=== PATIENT | female | born 2000 | race Caucasian/White ===

== ENCOUNTER 2023-04-07 18:32 | Emergency (ER) | payer OTHER, MEDICAID, SELFPAY ==
[2023-04-07] VITALS (7 sets, daily range): BP systolic 89–131; BP diastolic 55–79; PULSE 65–83; RESP 20; TEMP 36.4; O2SAT 92–97; BMI 38.9
--- NOTE | 2023-04-07 18:39 | DI.US.S_ITS ---
PROCEDURE: US PELVIC COMPLETE INDICATIONS: SEVERE PELVIC PAIN, IUD IN TECHNIQUE: Real-time scanning was performed of the pelvic organs, with image documentation. Additional endovaginal scanning was necessary due to incomplete visualization of the adnexal and endometrial structures by transabdominal scanning. COMPARISON: None. FINDINGS: Uterus: Uterus is anteverted and normal in size at 7.9 x 4.6 x 5.4 cm. The myometrium is homogeneous. The endometrium measures 10.1 mm combined thickness. There is an IUD in the uterine cavity. Nabothian cyst in cervix. Ovaries: Ovaries are not visualized. Other: No pathologic free abdominal or pelvic fluid. IMPRESSION: 1. A cause for pelvic pain is not identified. Ovaries are, however, not visualized. 2. Normal uterus. 3. IUD in expected position. 4. No free fluid in pelvis. We strive to produce accurate, complete, and clear reports of imaging services. To assist us in improving patient care, this report was composed using standard report templates and voice recognition software. Therefore, it may contain abnormal punctuation, insertions and/or omissions. Occasional wrong-word or sound-alike substitutions may occur. Though we review the report and make efforts to correct it, we do recommend that the report be read carefully in proper context to recognize any text inaccuracies. Dictated by: Bayron Berman M.D. on 04/07/2023 at 22:32 Approved by: Bayron Berman M.D. on 04/07/2023 at 22:34
[2023-04-07] MEDS: KETOROLAC 30 MG/ML VIAL 15 MG IV (18:46)
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
[2023-04-07 18:51] LABS: Add Manual Diff / Slide Review NO; Basophils Absolute Auto 0 /uL (0-100); Basophils Percent Auto 0.6 % (0-2); Eosinophils Absolute Auto 400 /uL (0-450); Eosinophils Percent Auto 6.8 % (2-4); Hematocrit 40.7 % (36-46); Hemoglobin 13.8 g/dL (12.0-16.0); Lymphocytes Absolute Auto 2200 /uL (1100-4500); Mean Corpuscular HGB Conc 33.8 % (30-36); Mean Corpuscular Hemoglobin 29.4 PG (26-34); Monocytes Absolute Auto 500 /uL (0-900); Monocytes Percent Auto 8.2 % (3-14); Neutrophils Absolute Auto 3100 /uL (1500-7000); Neutrophils Percent Auto 49.4 % (50-75); Platelet Count 242 X10^3/uL (150-400); Red Blood Cell Count 4.68 X10^6/uL (4.0-5.2); Red Cell Distribution Width 13.3 % (11.6-14.8); White Blood Cell Count 6.3 X10^3/uL (4.5-11.0)
[2023-04-07 19:03] LABS: Alanine Aminotransferase 34 IU/L (<35); Albumin 3.7 g/dL (3.5-5.0); Albumin Globulin Ratio 1.3 (1.0-2.8); Alkaline Phosphatase 91 U/L (38-126); Aspartate Aminotransferase 27 IU/L (14-36); BUN Creatinine Ratio 20.7 (6-22); Bilirubin Total 0.5 mg/dL (0.2-1.3); Blood Urea Nitrogen 12 mg/dL (7-17); Calcium 8.6 mg/dL (8.4-10.2); Carbon Dioxide 27 mmol/L (22-32); Chloride 104 mmol/L (98-107); Estimated Glomerular Filt Rate > 60 mL/min (>60); Globulin 2.9 g/dL (1.7-4.1); Glucose 88 mg/dL (70-100); HEMOLYSIS < 15 (0-50); Potassium 3.8 mmol/L (3.4-5.1); Sodium 135 mmol/L (137-145); Total Protein 6.6 g/dL (6.3-8.2)
[2023-04-07] MEDS: SODIUM CHLORIDE 0.9% 1,000 ML 1000 ML IV (19:11)
[2023-04-07] MEDS: DROPERIDOL 5 MG/2 ML VIAL 2.5 MG IV (19:11)
[2023-04-07 20:21] LABS: Appearance Urine UA CLEAR; Bilirubin Urine UA NEGATIVE (NEGATIVE); Color Urine UA YELLOW; Glucose Urine UA NEGATIVE (Negative); Ketones Urine UA NEGATIVE (NEGATIVE); Leukocyte Esterase Urine UA TRACE (NEGATIVE); Nitrite Urine UA NEGATIVE (Negative); Occult Blood Urine UA NEGATIVE (Negative); Protein Urine UA NEGATIVE (Negative); Specific Gravity Urine UA 1.015 (1.000-1.035)
[2023-04-07 20:28] LABS: Bacteria Urine Occasional (0-1); Culture Indicated Urine Cult Not Indicated; Mucus Urine 1+ (Negative); RBC Urine None Seen (0-5/HPF); Squamous Epithelial Cell Urine 5-10 /HPF (0-5/HPF); Urine Volume 10mL (spun); WBC Urine 0-1/HPF (0-5/HPF)
== END 2023-04-07 21:33 | disposition home or self-care (01) ==
PROVIDERS: Emergency Provider Emergency Medicine
DX: R10.2 Pelvic and perineal pain (principal); Z97.5 Presence of (intrauterine) contraceptive device; Z79.01 Long term (current) use of anticoagulants
CPT/HCPCS: 36415; 76830; 76856; 80053; 81001; 81025; 85025; 87210; 96361; 96374; 96375; 99284; J1790; J1885

== ENCOUNTER 2023-06-14 07:40 | Emergency (ER) | payer OTHER, MEDICAID, SELFPAY ==
[2023-06-14] VITALS (9 sets, daily range): BP systolic 96–117; BP diastolic 54–73; PULSE 65–76; RESP 14–25; TEMP 36.8; O2SAT 91–100; BMI 41.6
--- NOTE | 2023-06-14 07:59 | DI.RAD.S_ITS ---
PROCEDURE: XR CHEST 1V INDICATIONS: chest pain TECHNIQUE: One view of the chest was acquired. COMPARISON: [facility], CR, XR CHEST 2 VIEWS, 11/13/2018, 13:22. FINDINGS: Surgical changes and devices: None. Multiple wires overlying the chest. Lungs and pleura: Lungs are clear. Lower lung volumes. No pleural effusions or pneumothorax. Mediastinum: Mediastinal contours appear unchanged. Heart size is within normal limits. Bones and chest wall: No suspicious bony lesions. Overlying soft tissues appear unremarkable. IMPRESSION: No acute cardiopulmonary abnormality is seen. Dictated by: Juan Carlos Thompson M.D. on 06/14/2023 at 8:37 Approved by: Juan Carlos Thompson M.D. on 06/14/2023 at 8:38
--- NOTE | 2023-06-14 07:59 | DI.CT.S_ITS ---
PROCEDURE: CT HEAD/BRAIN WO CON INDICATIONS: Syncopal episode unwitnessed with head pain. TECHNIQUE: Noncontrast 4.5 mm thick angled axial sections acquired from the foramen magnum to the vertex, with coronal and sagittal reformats. For radiation dose reduction, the following was used: automated exposure control, adjustment of mA and/or kV according to patient size. COMPARISON: None. FINDINGS: Image quality: Diagnostic. CSF spaces: Basal cisterns are patent. No extra-axial fluid collections. Ventricles are normal in size and shape. Brain: No midline shift. No intracranial masses or hemorrhage. Gottlieb-white matter interface is normal. Skull and face: Calvarium and visualized facial bones are intact, without suspicious lesions. Sinuses: Visualized sinuses and mastoids are clear. IMPRESSION: No acute intracranial pathology. Dictated by: Efren Gil M.D. on 06/14/2023 at 8:25 Approved by: Efren Gil M.D. on 06/14/2023 at 8:25
--- NOTE | 2023-06-14 08:01 | DI.CT.S_ITS ---
PROCEDURE: CT CERVICAL SPINE WO CON INDICATIONS: Syncopal episode with head pain TECHNIQUE: Noncontrast 3 mm thick sections acquired from the skull base to the T4 level. Sagittal and coronal reformats were then constructed. For radiation dose reduction, the following was used: automated exposure control, adjustment of mA and/or kV according to patient size. COMPARISON: None. FINDINGS: Image quality: Excellent. Bones: No fractures or dislocations. Straightening and mild reversal the normal cervical lordosis, may be positional. Visualized superior ribs are intact. Soft tissues: Prevertebral soft tissues are normal in thickness. No paravertebral hematomas. No apical pneumothoraces. IMPRESSION: No displaced fracture or traumatic subluxation. Dictated by: Efren Gil M.D. on 06/14/2023 at 8:22 Approved by: Efren Gil M.D. on 06/14/2023 at 8:24
[2023-06-14 08:16] LABS: Add Manual Diff / Slide Review NO; Basophils Absolute Auto 0 /uL (0-100); Basophils Percent Auto 0.6 % (0-2); Eosinophils Absolute Auto 100 /uL (0-450); Eosinophils Percent Auto 1.9 % (2-4); Hematocrit 43.2 % (36-46); Hemoglobin 14.5 g/dL (12.0-16.0); Lymphocytes Absolute Auto 2100 /uL (1100-4500); Lymphocytes Percent Auto 32.6 % (25-40); Mean Corpuscular HGB Conc 33.7 % (30-36); Mean Corpuscular Hemoglobin 29.1 PG (26-34); Mean Corpuscular Volume 86.3 fL (80-100); Monocytes Absolute Auto 400 /uL (0-900); Monocytes Percent Auto 7.1 % (3-14); Neutrophils Absolute Auto 3700 /uL (1500-7000); Neutrophils Percent Auto 57.8 % (50-75); Platelet Count 260 X10^3/uL (150-400); Red Blood Cell Count 5.01 X10^6/uL (4.0-5.2); Red Cell Distribution Width 13.1 % (11.6-14.8); White Blood Cell Count 6.4 X10^3/uL (4.5-11.0)
--- NOTE | 2023-06-14 08:17 | ED_ITS ---
HPI - Syncope General Chief Complaint: Syncope Stated Complaint: syncope, weakness/ diziness Time Seen by Provider: 06/14/23 08:12 Source: patient and family Mode of arrival: Wheelchair Limitations: no limitations History of Present Illness HPI narrative: Patient here for syncopal episode. at home. Patient has long history of syncopal episodes. She has had 7 episodes in the past 1 year. She is being followed by [facility] services including cardiology with cardiac ablation for SVT however it did not resolve. She continues to have syncope episodes. No family history of arrhythmia. Denies any history of blood clots in legs or lungs. No recent illness otherwise. Patient states she does recall going to the bathroom, she urinated, and got up and felt very dizzy and felt very drained and tingling throughout her body, and she passed out. Denies any pain or injury from passing out. responded immediately. Brought her to the bed to lay her down. She did not pass out again. She states this is typical of her episodes in the past 1 year. This is not new. She has had MRI echocardiogram shows and workup for syncope. And she continues to. Related Data Home Medications Medication Instructions Recorded Confirmed alprazolam 0.25 mg tablet (Xanax) 0.25 mg PO BID PRN Anxiety 04/07/23 04/07/23 lamotrigine 25 mg tablet 25 mg PO DAILY 04/07/23 04/07/23 Allergies Allergy/AdvReac Type Severity Reaction Status Date / Time aspirin Allergy Intermediate Vomiting Verified 04/07/23 18:37 melatonin AdvReac Intermediate Swelling Verified 04/07/23 18:37 of Lip/Tongue/Throat Review of Systems Review of Systems Narrative: GENERAL: negative chills, fatigue, malaise, fever, sweats. HEENT: negative sinus pain, ear pain, sore throat RESPIRATORY: negative dyspnea, cough CARDIOVASCULAR: negative chest pain, palpitations GASTROINTESTINAL: negative nausea, vomiting, abdominal pain : negative dysuria, frequency, hematuria MUSCULOSKELETAL: negative muscle or bony pain SKIN: negative rash, skin lesions NEUROLOGIC: Positive syncope weakness, numbness ROS Unobtainable: All systems reviewed & are unremarkable except as noted in HPI and below Patient History Social History Smoking Status: Never smoker Smoking Status: Never smoker Alcohol type: hard liquor Substance Use Type: former substance user Exam Narrative Exam Narrative: GENERAL: in no distress, not toxic not dyspneic HEAD: Normocephalic. EYES: Pupils equal round ENT: Mucous membranes moist. NECK: Trachea midline. CARDIOVASCULAR: Regular rate and rhythm RESPIRATORY: Clear to auscultation. Breath sounds equal bilaterally. No wheezes, rales, or rhonchi. GASTROINTESTINAL: Abdomen soft, non-tender EXTREMITIES: No gross deformities. BACK: No flank tenderness. NEURO: AOx4. 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 pronator drift flexes and extends bilateral knees and ankles and hips without difficulty., fast exam is negative SKIN: Warm and dry PSYCH: Not anxious, is cooperative Initial Vital Signs Initial Vital Signs: Vital Signs Pulse Rate 76 06/14/23 07:50 Pulse Oximetry 98 06/14/23 07:50 Course Orders Ordered: Discontinued Medications Sodium Chloride (Normal Saline 0.9%) 1,000 mls @ 1,000 mls/hr IV BOLUS ONE Stop: 06/14/23 10:12 Last Admin: 06/14/23 09:33 Dose: 1,000 mls/hr Documented By: FRANK Vital Signs Vital signs: Vital Signs - 8 hr 06/14/23 07:50 06/14/23 07:51 06/14/23 07:51 Temperature Pulse Rate 76 76 Respiratory Rate 19 Blood Pressure 113/70 Pulse Oximetry 98 97 Oxygen Delivery Method 06/14/23 07:54 06/14/23 08:00 06/14/23 08:00 Temperature 98.3 F Pulse Rate 76 76 Respiratory Rate 18 17 Blood Pressure 113/70 117/73 Pulse Oximetry 97 96 Oxygen Delivery Method Room Air MDM - Syncope Lab Data 06/14/23 08:08 06/14/23 08:08 Labs: Lab Results 06/14/23 Range/Units 08:08 WBC 6.4 (4.5-11.0) X10^3/uL RBC 5.01 (4.0-5.2) X10^6/uL Hgb 14.5 (12.0-16.0) g/dL Hct 43.2 (36-46) % MCV 86.3 (80-100) fL MCH 29.1 (26-34) PG MCHC 33.7 (30-36) % RDW 13.1 (11.6-14.8) % Plt Count 260 (150-400) X10^3/uL Neut % (Auto) 57.8 (50-75) % Lymph % (Auto) 32.6 (25-40) % [place] % (Auto) 7.1 (3-14) % Eos % (Auto) 1.9 L (2-4) % Baso % (Auto) 0.6 (0-2) % Neut # (Auto) 3700 (6050-9720) /uL Lymph # (Auto) 2100 (4854-0154) /uL [place] # (Auto) 400 (0-900) /uL Eos # (Auto) 100 (0-450) /uL Baso # (Auto) 0 (0-100) /uL PT 11.3 (9.4-12.5) SECONDS INR 1.0 (0.9-1.3) APTT 35 (25.1-36.5) SECONDS Sodium 138 (137-145) mmol/L Potassium 4.2 (3.4-5.1) mmol/L Chloride 104 (98-107) mmol/L Carbon Dioxide 30 (22-32) mmol/L BUN 14 (7-17) mg/dL Creatinine 0.64 (0.52-1.04) mg/dL Estimated GFR > 60 (>60) mL/min BUN/Creatinine Ratio 21.9 (6-22) Glucose 95 (70-100) mg/dL Calcium 9.0 (8.4-10.2) mg/dL Magnesium 2.0 (1.6-2.3) mg/dL Total Bilirubin 0.7 (0.2-1.3) mg/dL AST 28 (14-36) IU/L ALT 37 H (<35) IU/L Alkaline Phosphatase 95 (38-126) U/L Total Creatine Kinase 75 (30-135) U/L Troponin I < 0.012 (0.01-0.034) ng/mL Total Protein 6.7 (6.3-8.2) g/dL Albumin 4.0 (3.5-5.0) g/dL Globulin 2.7 (1.7-4.1) g/dL Albumin/Globulin Ratio 1.5 (1.0-2.8) Lipase 67 (23-300) U/L Serum , Qual Negative (Negative) Imaging Data CT scan - head: Radiologist's Impression: [address] [address] [address] Scan Report Signed Patient: Barbara Lawler MR#: [id number] : 2000 Acct:[id number] Age/Sex: 23 / F Date of Service: 06/14/23 Loc: ED Accession Number: [id number] Procedure: CT head/brain wo con Ordering Provider: Ney Ramirez MD PROCEDURE: CT HEAD/BRAIN WO CON INDICATIONS: Syncopal episode unwitnessed with head pain. TECHNIQUE: Noncontrast 4.5 mm thick angled axial sections acquired from the foramen magnum to the vertex, with coronal and sagittal reformats. For radiation dose reduction, the following was used: automated exposure control, adjustment of mA and/or kV according to patient size. COMPARISON: None. FINDINGS: Image quality: Diagnostic. CSF spaces: Basal cisterns are patent. No extra-axial fluid collections. Ventricles are normal in size and shape. Brain: No midline shift. No intracranial masses or hemorrhage. Gottlieb-white matter interface is normal. Skull and face: Calvarium and visualized facial bones are intact, without suspicious lesions. Sinuses: Visualized sinuses and mastoids are clear. IMPRESSION: No acute intracranial pathology. Dictated by: Efren Gil M.D. on 06/14/2023 at 8:25 Approved by: Efren Gil M.D. on 06/14/2023 at 8:25 CT - cervical spine: Radiologist's Impression: [address] [address] [address] Scan Report Signed Patient: Barbara Lawler MR#: [id number] : 2000 Acct:[id number] Age/Sex: 23 / F Date of Service: 06/14/23 Loc: ED Accession Number: [id number] Procedure: CT cervical spine wo con Ordering Provider: Ney Ramirez MD PROCEDURE: CT CERVICAL SPINE WO CON INDICATIONS: Syncopal episode with head pain TECHNIQUE: Noncontrast 3 mm thick sections acquired from the skull base to the T4 level. Sagittal and coronal reformats were then constructed. For radiation dose reduction, the following was used: automated exposure control, adjustment of mA and/or kV according to patient size. COMPARISON: None. FINDINGS: Image quality: Excellent. Bones: No fractures or dislocations. Straightening and mild reversal the normal cervical lordosis, may be positional. Visualized superior ribs are intact. Soft tissues: Prevertebral soft tissues are normal in thickness. No paravertebral hematomas. No apical pneumothoraces. IMPRESSION: No displaced fracture or traumatic subluxation. Dictated by: Efren Gil M.D. on 06/14/2023 at 8:22 Approved by: Efren Gil M.D. on 06/14/2023 at 8:24 Chest x-ray: Radiologist's Impression: [address] [address] XRay Report Signed Patient: Barbara Lawler MR#: [id number] : 2000 Acct:[id number] Age/Sex: 23 / F Date of Service: 06/14/23 Loc: ED Accession Number: [id number] Procedure: XR chest 1V Ordering Provider: Ney Ramirez MD PROCEDURE: XR CHEST 1V INDICATIONS: chest pain TECHNIQUE: One view of the chest was acquired. COMPARISON: [facility], , XR CHEST 2 VIEWS, 11/13/2018, 13:22. FINDINGS: Surgical changes and devices: None. Multiple wires overlying the chest. Lungs and pleura: Lungs are clear. Lower lung volumes. No pleural effusions or pneumothorax. Mediastinum: Mediastinal contours appear unchanged. Heart size is within normal limits. Bones and chest wall: No suspicious bony lesions. Overlying soft tissues appear unremarkable. IMPRESSION: No acute cardiopulmonary abnormality is seen. Dictated by: Juan Carlos Thompson M.D. on 06/14/2023 at 8:37 Approved by: Juan Carlos Thompson M.D. on 06/14/2023 at 8:[address] [facility] Narrative Medical decision making narrative: Patient here for syncopal episode. at home. Patient has long history of syncopal episodes. She has had 7 episodes in the past 1 year. She is being followed by [facility] services including cardiology with cardiac ablation for SVT however it did not resolve. She continues to have syncope episodes. No family history of arrhythmia. Denies any history of blood clots in legs or lungs. No recent illness otherwise. Patient states she does recall going to the bathroom, she urinated, and got up and felt very dizzy and felt very drained and tingling throughout her body, and she passed out. Denies any pain or injury from passing out. responded immediately. Brought her to the bed to lay her down. She did not pass out again. She states this is typical of her episodes in the past 1 year. This is not new. She has had MRI echocardiogram shows and workup for syncope. And she continues to. After history and exam CBC CMP EKG CT head cervical spine chest x-ray troponin magnesium, no D-dimer indicated this time for syncope, patient has same syncopal episode as she has had in the last year/6 episodes. Vital signs are reassuring no hypoxia or tachypnea or tachycardia MDM Medical records reviewed: No recent visit for this complaint Differential considered: Includes but not limited to vasovagal syncope SVT arrhythmia pots syndrome, pulmonary embolism dehydration anemia Lab Test results independently reviewed as above. Pertinent findings: WBC 6.4 hemoglobin 14.5 INR 1.0 sodium 138 potassium 4.2 BUN 14 creatinine 0.64 GFR greater than 60 troponin less than 0.012, negative Independently reviewed EKG sinus rhythm rate [address] elevation or depression. There is incomplete right bundle-branch block Imaging studies independently reviewed: CT head CT cervical spine chest x-ray no acute finding Consultations: None indicated at this time Treatments: Normal saline Re-evaluations: 9:48 a.m. Patient remains awake alert oriented x4. No complaints. No pain. Reviewed results with patient and . They agree with workup here and discharge home. This is not new for her. Feeling tired and fatigued after these episodes is not new. Work note provided for both of them. Return precautions reviewed. No new medications indicated this time. They desire discharge home Discussion: Appropriate for discharge home. This is not patient's 1st episode. This is patient's 7th episode. She has been worked up by Cardiology EKG noted however again she has been worked up by Cardiology. Likely not pulmonary embolism given this patient has had 7 episodes in the past 1 year. No dyspnea no tachycardia no hypoxia. Return precautions reviewed. They desire discharge home Diagnosis: Recurrent syncope Discharge Plan Departure Patient Disposition: Home Clinical Impression: Syncope and collapse Instructions: DI for Syncope in Adults (Fainting) Activity Restrictions/Additional Instructions: No driving operating machinery today. Please do get plenty of rest. See your [facility] providers as scheduled. Continue home medications. Return if worse if any questions or concerns. Today's laboratory studies and workup and imaging studies and EKG are reassuring. Prescriptions: No Action alprazolam [Xanax] 0.25 mg Tablet 0.25 mg PO BID PRN (Reason: Anxiety) lamotrigine 25 mg Tablet 25 mg PO DAILY Stand Alone Forms: Patient Portal/API, Work Release Note
[2023-06-14 08:24] LABS: Prothrombin Time 11.3 SECONDS (9.4-12.5)
[2023-06-14 08:27] LABS: PTT Partial Thromboplastin Tim 35 SECONDS (25.1-36.5)
[2023-06-14 08:28] LABS: Alanine Aminotransferase 37 IU/L (<35); Albumin Globulin Ratio 1.5 (1.0-2.8); Alkaline Phosphatase 95 U/L (38-126); Aspartate Aminotransferase 28 IU/L (14-36); BUN Creatinine Ratio 21.9 (6-22); Bilirubin Total 0.7 mg/dL (0.2-1.3); Blood Urea Nitrogen 14 mg/dL (7-17); Carbon Dioxide 30 mmol/L (22-32); Chloride 104 mmol/L (98-107); Creatine Kinase 75 U/L (30-135); Estimated Glomerular Filt Rate > 60 mL/min (>60); Globulin 2.7 g/dL (1.7-4.1); Glucose 95 mg/dL (70-100); HEMOLYSIS < 15 (0-50); Lipase 67 U/L (23-300); Potassium 4.2 mmol/L (3.4-5.1); Sodium 138 mmol/L (137-145); Total Protein 6.7 g/dL (6.3-8.2)
[2023-06-14 08:39] LABS: Troponin I < 0.012 ng/mL (0.01-0.034)
[2023-06-14 09:23] LABS: Pregnancy Test Serum,Qual Negative (Negative)
[2023-06-14] MEDS: SODIUM CHLORIDE 0.9% 1,000 ML 1000 ML IV (09:33)
== END 2023-06-14 10:15 | disposition home or self-care (01) ==
PROVIDERS: Emergency Provider Emergency Medicine
DX: R55 Syncope and collapse (principal); R51.9 Headache, unspecified; R07.9 Chest pain, unspecified
CPT/HCPCS: 70450; 71045; 72125; 80053; 82550; 83690; 83735; 84484; 84703; 85025; 85610; 85730; 93005; 93010; 99284

== ENCOUNTER 2023-10-20 16:25 | Emergency (ER) | payer OTHER, MEDICAID, SELFPAY ==
[2023-10-20] VITALS (8 sets, daily range): BP systolic 104–111; BP diastolic 58–70; PULSE 70–81; RESP 16; TEMP 36.4; O2SAT 94–99; BMI 46.0
--- NOTE | 2023-10-20 17:00 | ED_ITS ---
HPI - General Adult <DO Silvano Jang Last Filed: 10/21/23 07:04> General Chief complaint: Abdominal Pain Stated complaint: N/V, abd pain Time Seen by Provider: 10/20/23 16:45 Source: patient Mode of arrival: Ambulatory Limitations: no limitations History of Present Illness HPI narrative: Patient is a 23-year-old female he was here for evaluation of less than 12 hours of right upper quadrant abdominal pain. She stated that she started to have some nausea last evening but after she woke up this morning and had breakfast which consisted of a bagel she developed right upper quadrant abdominal pain that has been persistent since then. Has tried to sleep today without success. Has had persistent pain. Persistent nausea. Has been constipated for the past couple days and did not have a bowel movement today. No urinary symptoms. No vaginal bleeding. She has had her appendix removed but no other abdominal surgeries. No chest pain or shortness of breath or fever. Related Data Home Medications Medication Instructions Recorded Confirmed alprazolam 0.25 mg tablet (Xanax) 0.25 mg PO BID PRN Anxiety 04/07/23 04/07/23 lamotrigine 25 mg tablet 25 mg PO DAILY 04/07/23 04/07/23 Previous Rx's Medication Instructions Recorded omeprazole 20 mg capsule,delayed 20 mg PO DAILY upper abdominal 10/20/23 release pain 30 days #30 caps Allergies Allergy/AdvReac Type Severity Reaction Status Date / Time aspirin Allergy Intermediate Vomiting Verified 04/07/23 18:37 melatonin AdvReac Intermediate Swelling Verified 04/07/23 18:37 of Lip/Tongue/Throat Review of Systems <DO Silvano Jang Last Filed: 10/21/23 07:04> Review of Systems Narrative: See HPI Patient History <DO Silvano Jang Last Filed: 10/21/23 07:04> Social History Smoking Status: Never smoker Smoking Status: Never smoker Alcohol type: hard liquor Substance Use Type: former substance user Exam <DO Silvano Jang Last Filed: 10/21/23 07:04> Initial Vital Signs Initial Vital Signs: Vital Signs Temperature 97.6 F 10/20/23 16:40 Pulse Rate 76 10/20/23 16:40 Respiratory Rate 16 10/20/23 16:40 Blood Pressure 108/70 10/20/23 16:40 Pulse Oximetry 97 10/20/23 16:40 Oxygen Delivery Method Room Air 10/20/23 16:40 Const General: cooperative and No ill appearing HENMT Head: normal to inspection and normocephalic Resp Effort & Inspection: normal respiratory effort Auscultation: clear to auscultation bilaterally Cardio Rate: regular rate Rhythm: regular rhythm GI Inspection: normal to inspection and non-distended Palpation: soft, No firm and tender (Right upper quadrant, positive Billings's sign) Back/Spine/Pelvis Back: No CVA tenderness Skin General: no rashes or lesions noted Neuro General: patient alert, patient awake, patient oriented x3 and moves all extremities Extrem General: normal to inspection and capillary refill normal <Isra Novak MD - Last Filed: 10/21/23 00:15> Initial Vital Signs Initial Vital Signs: Vital Signs Temperature 97.6 F 10/20/23 16:40 Pulse Rate 76 10/20/23 16:40 Respiratory Rate 16 10/20/23 16:40 Blood Pressure 108/70 10/20/23 16:40 Pulse Oximetry 97 10/20/23 16:40 Oxygen Delivery Method Room Air 10/20/23 16:40 Course <Juels Link DO - Last Filed: 10/21/23 07:04> Orders Ordered: Discontinued Medications Famotidine (Famotidine 20 Mg/2 Ml Vial) 20 mg IV NOW UVALDO Famotidine (Famotidine 20 Mg/2 Ml Vial) 20 mg IV NOW ONE Stop: 10/20/23 20:01 Last Admin: 10/20/23 19:57 Dose: 20 mg Documented By: LEO Hydromorphone HCl (Hydromorphone 0.5 Mg Inj) 0.5 mg IV NOW ONE Stop: 10/20/23 19:37 Last Admin: 10/20/23 19:56 Dose: 0.5 mg Documented By: LEO Sodium Chloride (Normal Saline 0.9%) 1,000 mls @ 1,000 mls/hr IV BOLUS ONE Stop: 10/20/23 17:59 Last Infusion: 10/20/23 19:57 Dose: Infused Documented By: Admin: 10/20/23 17:21 Dose: 1,000 mls/hr Documented By: DAMASO Ketorolac Tromethamine (Ketorolac 30 Mg/Ml Vial) 15 mg IV NOW ONE Stop: 10/20/23 17:02 Last Admin: 10/20/23 17:23 Dose: 15 mg Documented By: DAMASO Ondansetron HCl (Ondansetron 4 Mg/2 Ml Inj) 4 mg IV NOW ONE Stop: 10/20/23 17:01 Last Admin: 10/20/23 17:23 Dose: 4 mg Documented By: DAMASO Ondansetron HCl (Ondansetron 4 Mg/2 Ml Inj) 4 mg IV NOW ONE Stop: 10/20/23 20:08 Last Admin: 10/20/23 20:08 Dose: 4 mg Documented By: LEO Tramadol HCl (Tramadol 50 Mg Prepack) 1 bottle MISC DIRECTED ONE Stop: 10/20/23 19:42 Last Admin: 10/20/23 19:56 Dose: 1 bottle Documented By: LEO Vital Signs Vital signs: Vital Signs - 8 hr 10/20/23 16:40 10/20/23 18:17 10/20/23 18:17 Temperature 97.6 F Pulse Rate 76 75 Respiratory Rate 16 Blood Pressure 108/70 111/58 L Pulse Oximetry 97 97 Oxygen Delivery Method Room Air Room Air 10/20/23 18:32 10/20/23 19:00 10/20/23 19:30 Temperature Pulse Rate 70 75 71 Respiratory Rate Blood Pressure Pulse Oximetry 97 99 99 Oxygen Delivery Method 10/20/23 20:00 10/20/23 20:02 10/20/23 20:02 Temperature Pulse Rate 79 81 Respiratory Rate Blood Pressure 107/70 Pulse Oximetry 99 97 Oxygen Delivery Method 10/20/23 20:24 Temperature Pulse Rate 71 Respiratory Rate 16 Blood Pressure 104/66 Pulse Oximetry 94 Oxygen Delivery Method Room Air <Isra Novak MD - Last Filed: 10/21/23 00:15> Orders Ordered: Discontinued Medications Famotidine (Famotidine 20 Mg/2 Ml Vial) 20 mg IV NOW UVALDO Famotidine (Famotidine 20 Mg/2 Ml Vial) 20 mg IV NOW ONE Stop: 10/20/23 20:01 Last Admin: 10/20/23 19:57 Dose: 20 mg Documented By: LEO Hydromorphone HCl (Hydromorphone 0.5 Mg Inj) 0.5 mg IV NOW ONE Stop: 10/20/23 19:37 Last Admin: 10/20/23 19:56 Dose: 0.5 mg Documented By: LEO Sodium Chloride (Normal Saline 0.9%) 1,000 mls @ 1,000 mls/hr IV BOLUS ONE Stop: 10/20/23 17:59 Last Infusion: 10/20/23 19:57 Dose: Infused Documented By: Admin: 10/20/23 17:21 Dose: 1,000 mls/hr Documented By: DAMASO Ketorolac Tromethamine (Ketorolac 30 Mg/Ml Vial) 15 mg IV NOW ONE Stop: 10/20/23 17:02 Last Admin: 10/20/23 17:23 Dose: 15 mg Documented By: DAMASO Ondansetron HCl (Ondansetron 4 Mg/2 Ml Inj) 4 mg IV NOW ONE Stop: 10/20/23 17:01 Last Admin: 10/20/23 17:23 Dose: 4 mg Documented By: DAMASO Ondansetron HCl (Ondansetron 4 Mg/2 Ml Inj) 4 mg IV NOW ONE Stop: 10/20/23 20:08 Last Admin: 10/20/23 20:08 Dose: 4 mg Documented By: LEO Tramadol HCl (Tramadol 50 Mg Prepack) 1 bottle MISC DIRECTED ONE Stop: 10/20/23 19:42 Last Admin: 10/20/23 19:56 Dose: 1 bottle Documented By: LEO Vital Signs Vital signs: Vital Signs - 8 hr 10/20/23 16:40 10/20/23 18:17 10/20/23 18:17 Temperature 97.6 F Pulse Rate 76 75 Respiratory Rate 16 Blood Pressure 108/70 111/58 L Pulse Oximetry 97 97 Oxygen Delivery Method Room Air Room Air 10/20/23 18:32 10/20/23 19:00 10/20/23 19:30 Temperature Pulse Rate 70 75 71 Respiratory Rate Blood Pressure Pulse Oximetry 97 99 99 Oxygen Delivery Method 10/20/23 20:00 10/20/23 20:02 10/20/23 20:02 Temperature Pulse Rate 79 81 Respiratory Rate Blood Pressure 107/70 Pulse Oximetry 99 97 Oxygen Delivery Method 10/20/23 20:24 Temperature Pulse Rate 71 Respiratory Rate 16 Blood Pressure 104/66 Pulse Oximetry 94 Oxygen Delivery Method Room Air Medical Decision Making <Jules Link, - Last Filed: 10/21/23 07:04> Lab Data Lab results reviewed: Yes I reviewed the patient's lab results. 10/20/23 16:50 10/20/23 16:50 Labs: Lab Results 10/20/23 Range/Units 16:50 WBC 6.7 (4.5-11.0) X10^3/uL RBC 4.77 (4.0-5.2) X10^6/uL Hgb 14.0 (12.0-16.0) g/dL Hct 41.5 (36-46) % MCV 86.9 (80-100) fL MCH 29.3 (26-34) PG MCHC 33.7 (30-36) % RDW 13.2 (11.6-14.8) % Plt Count 230 (150-400) X10^3/uL Neut % (Auto) 46.8 L (50-75) % Lymph % (Auto) 41.0 H (25-40) % [place] % (Auto) 8.0 (3-14) % Eos % (Auto) 3.6 (2-4) % Baso % (Auto) 0.6 (0-2) % Neut # (Auto) 3100 (2879-4946) /uL Lymph # (Auto) 2700 (6590-2671) /uL [place] # (Auto) 500 (0-900) /uL Eos # (Auto) 200 (0-450) /uL Baso # (Auto) 0 (0-100) /uL Sodium 137 (137-145) mmol/L Potassium 3.8 (3.4-5.1) mmol/L Chloride 106 (98-107) mmol/L Carbon Dioxide 27 (22-32) mmol/L BUN 13 (7-17) mg/dL Creatinine 0.61 (0.52-1.04) mg/dL Estimated GFR > 60 (>60) mL/min BUN/Creatinine Ratio 21.3 (6-22) Glucose 100 (70-100) mg/dL Calcium 8.8 (8.4-10.2) mg/dL Total Bilirubin 0.5 (0.2-1.3) mg/dL AST 27 (14-36) IU/L ALT 35 H (<35) IU/L Alkaline Phosphatase 102 (38-126) U/L Total Protein 6.0 L (6.3-8.2) g/dL Albumin 3.7 (3.5-5.0) g/dL Globulin 2.3 (1.7-4.1) g/dL Albumin/Globulin Ratio 1.6 (1.0-2.8) Lipase 97 (23-300) U/L Serum , Qual Negative (Negative) Urine Dip Bedside Urine Glucose Negative Bedside Urine Bilirubin - Negative Bedside Urine Ketone - Negative Urine Specific [place] 1.015 Bedside Urine Occult Blood - Negative Bedside Urine pH 7.5 Bedside Urine Protein - Negative Bedside Urine Urobilinogen +/- 1mg Bedside Urine Nitrite - Negative Bedside Urine Leukocytes - Negative Esterase Point of care testing: Urine Dip Bedside Urine Glucose Negative Bedside Urine Bilirubin - Negative Bedside Urine Ketone - Negative Urine Specific [place] 1.015 Bedside Urine Occult Blood - Negative Bedside Urine pH 7.5 Bedside Urine Protein - Negative Bedside Urine Urobilinogen +/- 1mg Bedside Urine Nitrite - Negative Bedside Urine Leukocytes - Negative Esterase Imaging Data US - abdomen: Radiologist's Impression: PROCEDURE: US ABDOMEN LIMITED INDICATIONS: RUQ US eval for GB pathology TECHNIQUE: Real-time scanning was performed of the abdominal and retroperitoneal organs, with image documentation. COMPARISON: None. FINDINGS: Liver: Liver is normal in size and diffusely increased in echogenicity. Gallbladder: No gallstones. No wall thickening. No pericholecystic edema. Negative sonographic Billings's sign. gallbladder is mildly contracted. Biliary ducts: Intrahepatic bile ducts are non-dilated. Extrahepatic bile duct caliber measures 4.4 mm. Normal is 6-7 mm or less in diameter, or 10 mm or less post-cholecystectomy. Pancreas: Pancreas is not well visualized due to overlying bowel gas. Miscellaneous: No free abdominal fluid. IMPRESSION: 1. Mildly contracted but otherwise normal gallbladder. 2. Diffusely increased hepatic echogenicity is nonspecific, but most commonly encountered in the setting of hepatic steatosis. However, other causes of hepatocellular disease are not excluded. Recommend clinical correlation. MDM Narrative Medical decision making narrative: Patient with significant right upper quadrant abdominal pain. Positive Billings's sign. Unremarkable LFTs and lipase. Right upper quadrant ultrasound shows no signs of acute gallbladder pathology. Will obtain CT scan of the abdomen pelvis for further evaluation. She has had her appendix removed. Care turned over to Dr. Novak to follow-up and disposition. <Isra Novak MD - Last Filed: 10/21/23 00:15> Lab Data Labs: Lab Results 10/20/23 Range/Units 16:50 WBC 6.7 (4.5-11.0) X10^3/uL RBC 4.77 (4.0-5.2) X10^6/uL Hgb 14.0 (12.0-16.0) g/dL Hct 41.5 (36-46) % MCV 86.9 (80-100) fL MCH 29.3 (26-34) PG MCHC 33.7 (30-36) % RDW 13.2 (11.6-14.8) % Plt Count 230 (150-400) X10^3/uL Neut % (Auto) 46.8 L (50-75) % Lymph % (Auto) 41.0 H (25-40) % [place] % (Auto) 8.0 (3-14) % Eos % (Auto) 3.6 (2-4) % Baso % (Auto) 0.6 (0-2) % Neut # (Auto) 3100 (2198-1814) /uL Lymph # (Auto) 2700 (9622-7961) /uL [place] # (Auto) 500 (0-900) /uL Eos # (Auto) 200 (0-450) /uL Baso # (Auto) 0 (0-100) /uL Sodium 137 (137-145) mmol/L Potassium 3.8 (3.4-5.1) mmol/L Chloride 106 (98-107) mmol/L Carbon Dioxide 27 (22-32) mmol/L BUN 13 (7-17) mg/dL Creatinine 0.61 (0.52-1.04) mg/dL Estimated GFR > 60 (>60) mL/min BUN/Creatinine Ratio 21.3 (6-22) Glucose 100 (70-100) mg/dL Calcium 8.8 (8.4-10.2) mg/dL Total Bilirubin 0.5 (0.2-1.3) mg/dL AST 27 (14-36) IU/L ALT 35 H (<35) IU/L Alkaline Phosphatase 102 (38-126) U/L Total Protein 6.0 L (6.3-8.2) g/dL Albumin 3.7 (3.5-5.0) g/dL Globulin 2.3 (1.7-4.1) g/dL Albumin/Globulin Ratio 1.6 (1.0-2.8) Lipase 97 (23-300) U/L Serum , Qual Negative (Negative) Urine Dip Bedside Urine Glucose Negative Bedside Urine Bilirubin - Negative Bedside Urine Ketone - Negative Urine Specific [place] 1.015 Bedside Urine Occult Blood - Negative Bedside Urine pH 7.5 Bedside Urine Protein - Negative Bedside Urine Urobilinogen +/- 1mg Bedside Urine Nitrite - Negative Bedside Urine Leukocytes - Negative Esterase Point of care testing: Urine Dip Bedside Urine Glucose Negative Bedside Urine Bilirubin - Negative Bedside Urine Ketone - Negative Urine Specific [place] 1.015 Bedside Urine Occult Blood - Negative Bedside Urine pH 7.5 Bedside Urine Protein - Negative Bedside Urine Urobilinogen +/- 1mg Bedside Urine Nitrite - Negative Bedside Urine Leukocytes - Negative Esterase Imaging Data CT scan - abdomen/pelvis: Radiologist's Impression: [address] [address] [address] Scan Report Signed Patient: Barbara Poole MR#: [id number] : 2000 Acct:[id number] Age/Sex: 23 / F Date of Service: 10/20/23 Loc: ED Accession Number: [id number] Procedure: CT abdomen pelvis w con Ordering Provider: Jules Link D.O. PROCEDURE: CT ABDOMEN PELVIS W CON INDICATIONS: R sided abd pain has had appendectomy TECHNIQUE: After the administration of intravenous contrast, axial sections acquired from the lung bases to the pubic symphysis. Coronal and sagittal reformats were performed. For radiation dose reduction, the following was used: automated exposure control, adjustment of mA and/or kV according to patient size. COMPARISON: [facility], , US ABDOMEN LIMITED, 10/20/2023, 17:11. FINDINGS: Image quality: Diagnostic. Lower Chest: No significant findings. ABDOMEN: Liver: No solid mass. Gallbladder: Mildly contracted. No radiopaque gallstones or wall thickening. Biliary ducts: No biliary dilation. Pancreas: No ductal dilation. Spleen: Spleen is mildly enlarged measuring 12.9 cm in anterior-posterior dimension. Adrenal Glands: No adrenal nodules. Kidneys and Ureters: No hydronephrosis. No solid mass. No complex renal cystic lesion which requires follow up. Nonobstructing 2 mm calculus at the inferior pole of the left kidney. Stomach and Bowel: Normal colonic caliber, without significant wall thickening. Status post appendectomy. Small bowel loops and stomach are unremarkable. Peritoneum: No abnormal intraperitoneal fluid. No free air. Ventral Wall: Small fat containing periumbilical hernia. Abdominal Nodes: No retroperitoneal or mesenteric adenopathy by size criteria. Vessels: Aorta and inferior vena cava are normal in size. PELVIS: Pelvic Organs: Ovaries are symmetric in size. Uterus is unremarkable. Bladder: Bladder is decompressed and not well evaluated. Pelvic Nodes: No enlarged lymph nodes. Miscellaneous: No inguinal hernias are seen. Bones: No aggressive osseous abnormality. IMPRESSION: 1. No acute abnormality identified in the abdomen or pelvis. No definite source for right-sided abdominal pain. 2. Nonobstructing 2 mm left renal calculus. 3. Mild splenomegaly. Approved by: Alfonso Simons M.D. on 10/20/2023 at 19:07 MDM Narrative Medical decision making narrative: Patient with significant right upper quadrant abdominal pain. Positive Billings's sign. Unremarkable LFTs and lipase. Right upper quadrant ultrasound shows no signs of acute gallbladder pathology. Will obtain CT scan of the abdomen pelvis for further evaluation. She has had her appendix removed. Care turned over to Dr. Novak to follow-up and disposition. 10/20/2023, 6:00 p.m. Sign-out from Dr. Link. 23-year-old female with right upper quadrant abdominal pain, afebrile, HCG negative, normal white blood cell count, normal LFTs, normal lactate, right upper quadrant ultrasound negative. CT abdomen and pelvis has been ordered, still to be performed. Assumed care. CT abdomen pelvis showed nonobstructing 2 mm renal stones, no ureteral stones, no acute changes. Copy of the report provided the patient with explanation. Seems unlikely the nonobstructing stones because of her pain, and are also on the left side. She might pass the stones in the future in could develop left flank pain for this reason. Consider acid related problems, patient did admit to recent ibuprofen use while traveling in [place] for headache symptoms at that time. Consider use of omeprazole, advised trial of antacid, prescription sent to her pharmacy. Recheck advised of the regular doctor early next week, return precautions discussed, home with family Critical Care Time <Isra Novak MD - Last Filed: 10/21/23 00:15> Critical Care Time Critical Care Time: Yes Total Critical Care Time: 31 Attestation: The high probability of a clinically significant, sudden or life threatening deterioration of the [gastrointestinal, abdominopelvic, genitourinary] system(s) required my full and direct attention, intervention and personal management. The aggregate critical care time was [31] minutes. This time is in addition to time spent performing reported procedures but includes the following: [x] Data Review and interpretation [x] Patient assessment and monitoring of vital signs [x] Documentation [x] Medication orders and management Discharge Plan Departure Patient Disposition: Home Clinical Impression: Acute upper abdominal pain, Kidney stone on left side Activity Restrictions/Additional Instructions: Acute upper abdominal discomfort, no fever, laboratory studies showed normal liver function tests, test negative, urinalysis unremarkable. Ultrasound right upper quadrant of the abdomen unremarkable. CT abdomen and pelvis showed nonobstructing kidney stone, which should not necessarily cause any discomfort at this time, no mention of any obstruction changes in the kidney itself, or in the ureter between the kidney and the bladder. CT scan showed no acute changes. It is possible to have other causes of discomfort upper abdomen not visualized on ultrasound or CT scanning, such as inflammation of the stomach lining and ulcers of the stomach or duodenal or even of the esophagus. Consider course of antacid for now. Follow up with your regular provider, consider upper endoscopy if symptoms persist. Antacid prescription sent to your pharmacy. Avoid aspirin, alcohol, Motrin, naproxen, caffeinated beverages. Recheck symptoms early next week with your regular provider. Return to this/nearest emergency department for any change worsening symptoms or any concerns prior Prescriptions: New omeprazole 20 mg capsule,delayed release(DR/EC) 20 mg PO DAILY 30 Days Qty: 30 0RF No Action alprazolam [Xanax] 0.25 mg Tablet 0.25 mg PO BID PRN (Reason: Anxiety) lamotrigine 25 mg Tablet 25 mg PO DAILY Stand Alone Forms: Patient Portal/API
[2023-10-20 17:10] LABS: Add Manual Diff / Slide Review NO; Basophils Absolute Auto 0 /uL (0-100); Basophils Percent Auto 0.6 % (0-2); Eosinophils Absolute Auto 200 /uL (0-450); Eosinophils Percent Auto 3.6 % (2-4); Hematocrit 41.5 % (36-46); Lymphocytes Absolute Auto 2700 /uL (1100-4500); Mean Corpuscular HGB Conc 33.7 % (30-36); Mean Corpuscular Hemoglobin 29.3 PG (26-34); Mean Corpuscular Volume 86.9 fL (80-100); Monocytes Absolute Auto 500 /uL (0-900); Neutrophils Absolute Auto 3100 /uL (1500-7000); Neutrophils Percent Auto 46.8 % (50-75); Platelet Count 230 X10^3/uL (150-400); Red Blood Cell Count 4.77 X10^6/uL (4.0-5.2); Red Cell Distribution Width 13.2 % (11.6-14.8); White Blood Cell Count 6.7 X10^3/uL (4.5-11.0)
[2023-10-20 17:19] LABS: Pregnancy Test Serum,Qual Negative (Negative)
[2023-10-20] MEDS: SODIUM CHLORIDE 0.9% 1,000 ML 1000 ML IV (17:21)
[2023-10-20 17:22] LABS: Alanine Aminotransferase 35 IU/L (<35); Albumin 3.7 g/dL (3.5-5.0); Albumin Globulin Ratio 1.6 (1.0-2.8); Alkaline Phosphatase 102 U/L (38-126); Aspartate Aminotransferase 27 IU/L (14-36); BUN Creatinine Ratio 21.3 (6-22); Bilirubin Total 0.5 mg/dL (0.2-1.3); Blood Urea Nitrogen 13 mg/dL (7-17); Calcium 8.8 mg/dL (8.4-10.2); Carbon Dioxide 27 mmol/L (22-32); Chloride 106 mmol/L (98-107); Estimated Glomerular Filt Rate > 60 mL/min (>60); Globulin 2.3 g/dL (1.7-4.1); Glucose 100 mg/dL (70-100); HEMOLYSIS < 15 (0-50); Lipase 97 U/L (23-300); Potassium 3.8 mmol/L (3.4-5.1); Sodium 137 mmol/L (137-145)
[2023-10-20] MEDS: KETOROLAC 30 MG/ML VIAL 15 MG IV (17:23)
[2023-10-20] MEDS: ONDANSETRON 4 MG/2 ML INJ IV ×2 (17:23→20:08)
--- NOTE | 2023-10-20 18:13 | DI.CT.S_ITS ---
PROCEDURE: CT ABDOMEN PELVIS W CON INDICATIONS: R sided abd pain has had appendectomy TECHNIQUE: After the administration of intravenous contrast, axial sections acquired from the lung bases to the pubic symphysis. Coronal and sagittal reformats were performed. For radiation dose reduction, the following was used: automated exposure control, adjustment of mA and/or kV according to patient size. COMPARISON: [facility], , ABDOMEN LIMITED, 10/20/2023, 17:11. FINDINGS: Image quality: Diagnostic. Lower Chest: No significant findings. ABDOMEN: Liver: No solid mass. Gallbladder: Mildly contracted. No radiopaque gallstones or wall thickening. Biliary ducts: No biliary dilation. Pancreas: No ductal dilation. Spleen: Spleen is mildly enlarged measuring 12.9 cm in anterior-posterior dimension. Adrenal Glands: No adrenal nodules. Kidneys and Ureters: No hydronephrosis. No solid mass. No complex renal cystic lesion which requires follow up. Nonobstructing 2 mm calculus at the inferior pole of the left kidney. Stomach and Bowel: Normal colonic caliber, without significant wall thickening. Status post appendectomy. Small bowel loops and stomach are unremarkable. Peritoneum: No abnormal intraperitoneal fluid. No free air. Ventral Wall: Small fat containing periumbilical hernia. Abdominal Nodes: No retroperitoneal or mesenteric adenopathy by size criteria. Vessels: Aorta and inferior vena cava are normal in size. PELVIS: Pelvic Organs: Ovaries are symmetric in size. Uterus is unremarkable. Bladder: Bladder is decompressed and not well evaluated. Pelvic Nodes: No enlarged lymph nodes. Miscellaneous: No inguinal hernias are seen. Bones: No aggressive osseous abnormality. IMPRESSION: 1. No acute abnormality identified in the abdomen or pelvis. No definite source for right-sided abdominal pain. 2. Nonobstructing 2 mm left renal calculus. 3. Mild splenomegaly. Approved by: Alfonso Simons M.D. on 10/20/2023 at 19:07
[2023-10-20] MEDS: HYDROMORPHONE 0.5 MG INJ IV (19:56)
[2023-10-20] MEDS: TRAMADOL 50 MG PREPACK 1 BOTTLE MISC (19:56)
[2023-10-20] MEDS: FAMOTIDINE 20 MG/2 ML VIAL IV (19:57)
== END 2023-10-20 20:36 | disposition home or self-care (01) ==
PROVIDERS: Emergency Medicine; Emergency Provider Emergency Medicine
DX: N20.0 Calculus of kidney (principal); R10.11 Right upper quadrant pain
CPT/HCPCS: 36415; 74177; 76705; 80053; 81003; 83690; 84703; 85025; 96361; 96374; 96375; 96376; 99284; J1170; J1885; J2405; Q9967

== ENCOUNTER 2023-11-12 21:45 | Emergency (ER) | payer OTHER, SELFPAY ==
[2023-11-12 22:04] VITALS: BP 125/70; PULSE 94; RESP 18; TEMP 36.5; O2SAT 96; BMI 44.2
--- NOTE | 2023-11-12 22:20 | ED_ITS ---
HPI - Back Pain/Injury General Chief Complaint: Back Pain/Injury Stated Complaint: severe back pain Time Seen by Provider: 11/12/23 22:01 Source: patient History of Present Illness HPI Narrative: 23-year-old female with history of bipolar 1 disorder presents for severe lower back pain. Patient states that she woke up yesterday with back pain that has progressively worsened and is now ?unbearable?. Took Tylenol yesterday, no medications taken today for symptoms. Denies bowel or bladder incontinence, denies saddle anesthesia, reports difficulty walking due to pain, denies weakness in her legs. Related Data Home Medications Medication Instructions Recorded Confirmed alprazolam 0.25 mg tablet (Xanax) 0.25 mg PO BID PRN Anxiety 04/07/23 04/07/23 lamotrigine 25 mg tablet 25 mg PO DAILY 04/07/23 04/07/23 Previous Rx's Medication Instructions Recorded omeprazole 20 mg capsule,delayed 20 mg PO DAILY upper abdominal 10/20/23 release pain 30 days #30 caps methocarbamol 500 mg tablet 500 mg PO TID PRN muscle spasm #30 11/13/23 tabs methylprednisolone 4 mg tablets in See Rx Instructions PO .COMPLEX 11/13/23 a dose pack (Medrol (Johan)) #21 ea Allergies Allergy/AdvReac Type Severity Reaction Status Date / Time aspirin Allergy Intermediate Vomiting Verified 04/07/23 18:37 melatonin AdvReac Intermediate Swelling Verified 04/07/23 18:37 of Lip/Tongue/Throat Patient History Social History Smoking Status: Never smoker Smoking Status: Never smoker Alcohol type: hard liquor Substance Use Type: marijuana Exam Initial Vital Signs Initial Vital Signs: Vital Signs Temperature 97.7 F 11/12/23 22:04 Pulse Rate 94 H 11/12/23 22:04 Respiratory Rate 18 11/12/23 22:04 Blood Pressure 125/70 11/12/23 22:04 Pulse Oximetry 96 11/12/23 22:04 Oxygen Delivery Method Room Air 11/12/23 22:04 Const: Awake, alert, tearful, in pain Cardiac: regular rate, regular rhythm RESP: unlabored, clear bilaterally, no wheezing GI: Soft, nontender, nondistended MSK: generalized tenderness over lumbar spine Skin: Warm, Dry, intact, no rashes Neuro: AO x3, CN II-XII grossly intact, moves all extremities, sensation intact Course Orders Ordered: Discontinued Medications Dexamethasone (Dexamethasone 10 Mg/Ml Vial) 10 mg IV NOW ONE Stop: 11/12/23 22:20 Last Admin: 11/12/23 22:46 Dose: 10 mg Documented By: KELLY Acetaminophen (Ofirmev) 1,000 mg in 100 mls @ 400 mls/hr IV NOW ONE Stop: 11/12/23 22:33 Last Infusion: 11/12/23 23:26 Dose: Infused Documented By: Admin: 11/12/23 22:43 Dose: 400 mls/hr Documented By: KELLY Ketorolac Tromethamine (Ketorolac 30 Mg/Ml Vial) 15 mg IV NOW ONE Stop: 11/12/23 22:20 Last Admin: 11/12/23 22:46 Dose: 15 mg Documented By: KELLY Oxycodone HCl (Oxycodone Ir 5 Mg Tablet) 5 mg PO NOW ONE Stop: 11/12/23 22:48 Last Admin: 11/12/23 23:29 Dose: Not Given Documented By: LEO Vital Signs Vital signs: Vital Signs - 8 hr 11/12/23 22:04 11/12/23 23:05 11/12/23 23:06 Temperature 97.7 F Pulse Rate 94 H 78 Respiratory Rate 18 Blood Pressure 125/70 98/54 L Pulse Oximetry 96 95 Oxygen Delivery Method Room Air 11/12/23 23:06 11/12/23 23:21 11/12/23 23:21 Temperature Pulse Rate 79 76 Respiratory Rate Blood Pressure 92/50 L Pulse Oximetry 94 94 Oxygen Delivery Method Room Air 11/12/23 23:23 11/12/23 23:23 11/12/23 23:30 Temperature Pulse Rate 77 Respiratory Rate Blood Pressure 101/55 L 101/66 Pulse Oximetry 94 Oxygen Delivery Method 11/12/23 23:30 Temperature Pulse Rate 73 Respiratory Rate Blood Pressure Pulse Oximetry 95 Oxygen Delivery Method Room Air MDM - Back Pain/Injury Imaging Data CT - cervical spine: Radiologist's Impression: PROCEDURE: CT LUMBAR SPINE WO CON INDICATIONS: MIDLINE LBP TECHNIQUE: Noncontrast 3 mm thick sections acquired from the T12 level to the sacrum. Sagittal and coronal reformats were constructed. For radiation dose reduction, the following was used: automated exposure control. COMPARISON: None. FINDINGS: Image quality: Excellent. Bones: There is normal bony alignment. No acute vertebral body compression fr actures. No suspicious lytic or blastic bony lesions. No pars defects. No significant disc height loss, disc bulge, neural foraminal stenosis, or central canal narrowing. Soft tissues: No retroperitoneal masses or hematomas. Visualized aorta is normal in caliber. Punctate nonobstructing left lower pole intrarenal calculus. Prior appendectomy. IMPRESSION: No CT evidence of acute process involving the lumbar spine. Dictated by: Hannah Edmondson M.D. on 11/12/2023 at 23:28 Approved by: Hannah Edmondson M.D. on 11/12/2023 at 23:31 [facility] Narrative Medical decision making narrative: Back pain. Patient was tearful, crying, unable to find comfortable position in bed. Pain medications ordered for symptomatic control. Due to patient's reported severity of discomfort a CT was ordered, which did not show any acute abnormalities. Patient received nonnarcotic pain medications and on subsequent reassessment was resting comfortably in bed, texting on her cell phone. Patient informed of CT results. Recommended continuing Tylenol and ibuprofen as needed for symptoms. Medrol Johan and muscle relaxers sent to pharmacy of choice. PCP follow up advised. Discharge Plan Departure Patient Disposition: Home Clinical Impression: Lumbar back pain Instructions: DI for Low Back Pain Activity Restrictions/Additional Instructions: Your CT imaging today was normal. Take Tylenol and ibuprofen for pain at home along with the steroids and muscle relaxers. Your pain should improve over the next several days to several weeks. Use gentle stretching exercises to help relieve pain. Follow up with your primary care doctor, especially if you continued to have pain. Prescriptions: New methylprednisolone [Medrol (Johan)] 4 mg tablets,dose pack See Rx Instructions .ROUTE .COMPLEX Qty: 21 0RF Rx Instructions: for 6 days methocarbamol 500 mg tablet 500 mg PO TID PRN (Reason: muscle spasm) Qty: 30 0RF No Action alprazolam [Xanax] 0.25 mg Tablet 0.25 mg PO BID PRN (Reason: Anxiety) lamotrigine 25 mg Tablet 25 mg PO DAILY omeprazole 20 mg capsule,delayed release(DR/EC) 20 mg PO DAILY 30 Days Qty: 30 0RF Stand Alone Forms: Patient Portal/API
[2023-11-12] MEDS: ACETAMINOPHEN IV 1,000 MG/100 ML VIAL 400 MG IV (22:43)
[2023-11-12] MEDS: KETOROLAC 30 MG/ML VIAL 15 MG IV (22:46)
[2023-11-12] MEDS: DEXAMETHASONE 10 MG/ML VIAL IV (22:46)
[2023-11-12 23:05] VITALS: PULSE 78; O2SAT 95
[2023-11-12 23:06] VITALS: BP 98/54; PULSE 79; O2SAT 94
[2023-11-12 23:21] VITALS: BP 92/50; PULSE 76; O2SAT 94
[2023-11-12 23:23] VITALS: BP 101/55; PULSE 77; O2SAT 94
[2023-11-12 23:30] VITALS: BP 101/66; PULSE 73; O2SAT 95
[2023-11-13] VITALS: BP 98/64; PULSE 69; O2SAT 94
== END 2023-11-13 00:29 | disposition home or self-care (01) ==
PROVIDERS: Emergency Provider Emergency Medicine
DX: M54.50 Low back pain, unspecified (principal)
CPT/HCPCS: 72131; 96365; 96375; 99284; J0136; J1100; J1885

== ENCOUNTER 2024-09-07 01:31 | Emergency (ER) | payer OTHER, SELFPAY ==
[2024-09-07] VITALS (9 sets, daily range): BP systolic 96–122; BP diastolic 55–73; PULSE 60–79; RESP 8–31; O2SAT 83–99; BMI 47.5
--- NOTE | 2024-09-07 01:46 | DI.CT.S_ITS ---
PROCEDURE: CT ABDOMEN PELVIS W CON INDICATIONS: abd pain n/v TECHNIQUE: After the administration of intravenous contrast, axial sections acquired from the lung bases to the pubic symphysis. Coronal and sagittal reformats were performed. For radiation dose reduction, the following was used: automated exposure control, adjustment of mA and/or kV according to patient size. COMPARISON: [facility], CT, CT ABDOMEN PELVIS W CON, 10/20/2023, 18:16. FINDINGS: Image quality: Diagnostic Lower chest: Bibasal atelectasis. Normal heart size. Small hiatal hernia. Liver: Unremarkable Gallbladder and biliary system: Unremarkable, nondilated Pancreas: No ductal dilation Spleen: Prominent at 13 cm Adrenals: There is a splenule adjacent to the left adrenal. No discrete adrenal nodule Kidneys: 2 mm left proximal ureter stone with upstream hydronephrosis and delayed nephrogram. Vessels and lymph nodes: The main portal vein is patent. No abdominal aortic aneurysm. No pathologic lymph nodes by size criteria. Bowel and peritoneum: No drainable abscess or ascites. There are prominent right lower quadrant mesenteric lymph nodes. Appendix was not seen Body wall: Unremarkable Pelvis: Bladder is unremarkable, under distended. Reproductive organs are unremarkable on limited CT evaluation Bones: No aggressive appearing osseous abnormality. IMPRESSION: 2 mm left proximal ureter calculus with upstream delayed nephrogram indicating obstructive uropathy and mild hydronephrosis. Mildly enlarged right lower quadrant lymph nodes, possibly additional mesenteric adenitis, also seen in 2023. Other findings above. No significant changes from the preliminary report. Dictated by: Steven Christine M.D. on 09/07/2024 at 9:36 Approved by: Steven Christine M.D. on 09/07/2024 at 9:40
[2024-09-07] MEDS: HYDROMORPHONE 1 MG INJ IV (01:49)
[2024-09-07] MEDS: ONDANSETRON 4 MG/2 ML INJ IV (01:49)
[2024-09-07] MEDS: LACTATED RINGERS 1,000 ML 1000 ML IV (01:52)
--- NOTE | 2024-09-07 01:52 | ED.ABDPAIN ---
HPI - Abdominal Pain General Chief Complaint: Urogenital-Female Stated Complaint: Vomiting, Nausea, Back Pain, Abdominal Pain Time Seen by Provider: 09/07/24 01:35 Source: patient Mode of arrival: Wheelchair History of Present Illness HPI narrative: 24-year-old female history of kidney stones presents with left-sided back pain radiating to left lower quadrant tonight along with numerous bouts of nausea, vomiting, nonbilious, nonbloody, feels like kidney stone attack. Denies fever, chills, bodyaches, urinary complaints, chest pain, shortness of breath, cough, sore throat, vaginal discharge, or constipation. Other than what is stated 14 point review of system is negative. Related Data Home Medications ?Medication ?Instructions ?Recorded ?Confirmed alprazolam 0.25 mg tablet (Xanax) 0.25 mg PO BID PRN Anxiety 04/07/23 04/07/23 lamotrigine 25 mg tablet 25 mg PO DAILY 04/07/23 04/07/23 Previous Rx's ?Medication ?Instructions ?Recorded methocarbamol 500 mg tablet 500 mg PO TID PRN muscle spasm #30 11/13/23 tabs methylprednisolone 4 mg tablets in See Rx Instructions PO .COMPLEX 11/13/23 a dose pack (Medrol (Johan)) #21 ea hydrocodone 5 mg-acetaminophen 325 1 tab PO Q4-6H PRN pain #20 tabs 09/07/24 mg tablet nitrofurantoin 100 mg PO Q12H 5 days #10 caps 09/07/24 monohydrate/macrocrystals 100 mg capsule (Macrobid) ondansetron 4 mg disintegrating 4 mg PO Q8H PRN nausea and 09/07/24 tablet vomiting #30 tabs tamsulosin 0.4 mg capsule (Flomax) 0.4 mg PO DAILY #30 caps 09/07/24 Allergies Allergy/AdvReac Type Severity Reaction Status Date / Time aspirin Allergy Intermediate Vomiting Verified 04/07/23 18:37 melatonin AdvReac Intermediate Swelling Verified 04/07/23 18:37 of Lip/Tongue/Throat Review of Systems Review of Systems ROS Unobtainable: All systems reviewed & are unremarkable except as noted in HPI and below Patient History Social History Smoking Status: Never smoker Smoking Status: Never smoker Alcohol type: hard liquor Exam Narrative Exam Narrative: GENERAL: [24] year old patient appears stated age. Well-developed patient, in mild distress. HEAD: Atraumatic. Normocephalic. EYES: Pupils equal round and reactive. Extraocular motions intact. No scleral icterus. No injection or drainage. ENT: Nose without bleeding, purulent drainage. Throat without erythema, tonsillar hypertrophy or exudate. Airway patent. NECK: Trachea midline. Non tender CARDIOVASCULAR: Regular rate and rhythm without murmurs, gallops, or rubs. RESPIRATORY: Clear to auscultation. Breath sounds equal bilaterally. No wheezes, rales, or rhonchi. GASTROINTESTINAL: Abdomen soft, LLQ TTP nondistended. EXTREMITIES: No edema or joint tenderness. BACK: Nontender without deformity or crepitance. No flank tenderness. NEURO: AOx3. SKIN: No rash or erythema of visible areas Course Orders Ordered: ED Orders 09/07/24 01:46 CT abdomen pelvis w con Stat Complete Blood Count AUTO DIFF Stat Comprehensive Metabolic Panel Stat Lipase Stat Lactated Ringer's (Lactated Ringers) 1,000 mls @ 1,000 mls/hr IV BOLUS ONE Stop: 09/07/24 02:45 Ketorolac Tromethamine (Ketorolac 30 Mg/Ml Vial) 30 mg IV NOW ONE Stop: 09/07/24 01:52 Discontinued Medications Hydromorphone HCl (Hydromorphone 1 Mg Inj) 1 mg IV NOW ONE Stop: 09/07/24 01:47 Last Admin: 09/07/24 01:49 Dose: 1 mg Documented By: ALEX Ondansetron HCl (Ondansetron 4 Mg/2 Ml Inj) 4 mg IV NOW ONE Stop: 09/07/24 01:47 Last Admin: 09/07/24 01:49 Dose: 4 mg Documented By: ALEX MDM - Abdominal Pain MDM Narrative Medical decision making narrative: All lab work, vital signs, nurse triage note, medication list, previous ER visits, and all imaging studies reviewed. CT abdomen showed mild left hydronephrosis and perinephric periureteral inflammatory changes with obstructing 3 mm proximal ureteral calculus. Normal white count BUN 15 creatinine 0.67 glucose 125 lipase 152. Patient given fluids Dilaudid Zofran and Toradol and Macrobid. DC home on Zofran Macrobid and [place] and to keep hydrated and follow up with Urology referral. Differential diagnosis include kidney stone kidney infection UTI pancreatitis. Discharge Plan Departure Patient Disposition: Home Clinical Impression: Kidney stone Instructions: DI for Kidney Stones Activity Restrictions/Additional Instructions: Return with new or worsening symptoms. Take your medicines directed. Keep hydrated. Follow up with the Urology referral. Prescriptions: New tamsulosin [Flomax] 0.4 mg capsule 0.4 mg PO DAILY Qty: 30 0RF hydrocodone-acetaminophen 5-325 mg tablet 1 tab PO Q4-6H PRN (Reason: pain) Qty: 20 0RF ondansetron 4 mg tablet,disintegrating 4 mg PO Q8H PRN (Reason: nausea and vomiting) Qty: 30 0RF nitrofurantoin monohyd/m-cryst [Macrobid] 100 mg capsule 100 mg PO Q12H 5 Days Qty: 10 0RF Rx Instructions: must administer with a meal/food No Action alprazolam [Xanax] 0.25 mg Tablet 0.25 mg PO BID PRN (Reason: Anxiety) lamotrigine 25 mg Tablet 25 mg PO DAILY methylprednisolone [Medrol (Johan)] 4 mg tablets,dose pack See Rx Instructions .ROUTE .COMPLEX Qty: 21 0RF Rx Instructions: for 6 days methocarbamol 500 mg tablet 500 mg PO TID PRN (Reason: muscle spasm) Qty: 30 0RF Referrals: Chintan Estrada DO [Physician, Urology] Referral Note: 3mm proximal ureteral calculus Stand Alone Forms: Patient Portal/API
[2024-09-07] MEDS: KETOROLAC 30 MG/ML VIAL IV (01:55)
[2024-09-07 01:56] LABS: Add Manual Diff / Slide Review NO; Basophils Absolute Auto 100 /uL (0-100); Basophils Percent Auto 0.8 % (0-2); Eosinophils Absolute Auto 300 /uL (0-450); Eosinophils Percent Auto 3.3 % (2-4); Hematocrit 44.9 % (36-46); Hemoglobin 15.4 g/dL (12.0-16.0); Lymphocytes Absolute Auto 4400 /uL (1100-4500); Lymphocytes Percent Auto 53.6 % (25-40); Mean Corpuscular HGB Conc 34.3 % (30-36); Mean Corpuscular Hemoglobin 28.7 PG (26-34); Mean Corpuscular Volume 83.5 fL (80-100); Monocytes Absolute Auto 600 /uL (0-900); Monocytes Percent Auto 7.8 % (3-14); Neutrophils Absolute Auto 2800 /uL (1500-7000); Neutrophils Percent Auto 34.5 % (50-75); Platelet Count 258 X10^3/uL (150-400); Red Blood Cell Count 5.37 X10^6/uL (4.0-5.2); Red Cell Distribution Width 13.6 % (11.6-14.8); White Blood Cell Count 8.2 X10^3/uL (4.5-11.0)
[2024-09-07 02:10] LABS: Alanine Aminotransferase 28 IU/L (<35); Albumin 4.7 g/dL (3.5-5.0); Albumin Globulin Ratio 1.7 (1.0-2.8); Alkaline Phosphatase 77 U/L (38-126); Aspartate Aminotransferase 35 IU/L (14-36); BUN Creatinine Ratio 22.4 (6-22); Bilirubin Total 0.7 mg/dL (0.2-1.3); Blood Urea Nitrogen 15 mg/dL (7-17); Calcium 9.8 mg/dL (8.4-10.2); Carbon Dioxide 20 mmol/L (22-32); Chloride 105 mmol/L (98-107); Estimated Glomerular Filt Rate > 60 mL/min (>60); Globulin 2.8 g/dL (1.7-4.1); Glucose 125 mg/dL (70-99); HEMOLYSIS 32 (0-50); Lipase 152 U/L (23-300); Potassium 3.7 mmol/L (3.4-5.1); Sodium 137 mmol/L (137-145); Total Protein 7.5 g/dL (6.3-8.2)
[2024-09-07] MEDS: TAMSULOSIN 0.4 MG CAPSULE PO (04:01)
[2024-09-07] MEDS: HYDROCODONE/ACET 5/325 TABLET 1 TAB PO (04:01)
[2024-09-07] MEDS: NITROFURANTOIN ER 100 MG CAPSULE PO (04:01)
== END 2024-09-07 04:12 | disposition home or self-care (01) ==
PROVIDERS: Emergency Provider Family Medicine
DX: N20.0 Calculus of kidney (principal)
CPT/HCPCS: 36415; 74177; 80053; 83690; 85025; 99285; J1171; J1885; J2405; Q9967

== ENCOUNTER 2024-09-07 22:16 | Emergency (ER) | payer OTHER, SELFPAY ==
[2024-09-07 22:28] VITALS: BP 146/94; PULSE 79; RESP 18; TEMP 36.6; O2SAT 100; BMI 47.5
[2024-09-07] MEDS: HYDROMORPHONE 1 MG INJ IV (22:45)
[2024-09-07 22:46] LABS: Add Manual Diff / Slide Review NO; Basophils Absolute Auto 0 /uL (0-100); Basophils Percent Auto 0.5 % (0-2); Eosinophils Absolute Auto 200 /uL (0-450); Eosinophils Percent Auto 2.9 % (2-4); Hematocrit 44.1 % (36-46); Lymphocytes Absolute Auto 3200 /uL (1100-4500); Lymphocytes Percent Auto 43.4 % (25-40); Mean Corpuscular HGB Conc 34.1 % (30-36); Mean Corpuscular Hemoglobin 28.7 PG (26-34); Mean Corpuscular Volume 84.2 fL (80-100); Monocytes Absolute Auto 500 /uL (0-900); Monocytes Percent Auto 6.4 % (3-14); Neutrophils Absolute Auto 3500 /uL (1500-7000); Neutrophils Percent Auto 46.8 % (50-75); Platelet Count 246 X10^3/uL (150-400); Red Blood Cell Count 5.23 X10^6/uL (4.0-5.2); Red Cell Distribution Width 13.6 % (11.6-14.8); White Blood Cell Count 7.4 X10^3/uL (4.5-11.0)
[2024-09-07] MEDS: LACTATED RINGERS 1,000 ML 1000 ML IV (22:46)
[2024-09-07 22:49] VITALS: PULSE 74; O2SAT 96
[2024-09-07 22:50] VITALS: BP 133/82; PULSE 71; O2SAT 95
[2024-09-07 23:00] VITALS: BP 135/87; PULSE 65; O2SAT 92
[2024-09-07 23:07] LABS: Alanine Aminotransferase 27 IU/L (<35); Albumin 4.5 g/dL (3.5-5.0); Albumin Globulin Ratio 1.7 (1.0-2.8); Alkaline Phosphatase 72 U/L (38-126); Aspartate Aminotransferase 32 IU/L (14-36); BUN Creatinine Ratio 22.2 (6-22); Bilirubin Total 0.8 mg/dL (0.2-1.3); Blood Urea Nitrogen 18 mg/dL (7-17); Calcium 9.4 mg/dL (8.4-10.2); Carbon Dioxide 23 mmol/L (22-32); Chloride 103 mmol/L (98-107); Estimated Glomerular Filt Rate > 60 mL/min (>60); Globulin 2.6 g/dL (1.7-4.1); Glucose 125 mg/dL (70-99); HEMOLYSIS 21 (0-50); Potassium 3.7 mmol/L (3.4-5.1); Sodium 138 mmol/L (137-145); Total Protein 7.1 g/dL (6.3-8.2)
--- NOTE | 2024-09-07 23:15 | ED.RECABL ---
HPI - Recheck/Abnormal Lab/Rx General Chief Complaint: Recheck/Abnormal Lab/Rx Stated Complaint: kidney stones Time Seen by Provider: 09/07/24 22:28 Source: patient Mode of arrival: Wheelchair History of Present Illness HPI narrative: 24-year-old female seen by me yesterday night with kidney stone 3 mm discharged on Flomax strainer and hydrocodone presents with continued left-sided flank pain tonight despite taking pain medicines as directed. Patient denies fever, chills, body aches, chest pain, shortness of breath, or urinary complaints. Other than what is stated 14 point review of system is negative. Related Data Home Medications ?Medication ?Instructions ?Recorded ?Confirmed alprazolam 0.25 mg tablet (Xanax) 0.25 mg PO BID PRN Anxiety 04/07/23 04/07/23 lamotrigine 25 mg tablet 25 mg PO DAILY 04/07/23 04/07/23 Previous Rx's ?Medication ?Instructions ?Recorded methocarbamol 500 mg tablet 500 mg PO TID PRN muscle spasm #30 11/13/23 tabs methylprednisolone 4 mg tablets in See Rx Instructions PO .COMPLEX 11/13/23 a dose pack (Medrol (Johan)) #21 ea hydrocodone 5 mg-acetaminophen 325 1 tab PO Q4-6H PRN pain #20 tabs 09/07/24 mg tablet nitrofurantoin 100 mg PO Q12H 5 days #10 caps 09/07/24 monohydrate/macrocrystals 100 mg capsule (Macrobid) ondansetron 4 mg disintegrating 4 mg PO Q8H PRN nausea and 09/07/24 tablet vomiting #30 tabs tamsulosin 0.4 mg capsule (Flomax) 0.4 mg PO DAILY #30 caps 09/07/24 hydromorphone 2 mg tablet 2 mg PO Q4-6H PRN pain #20 tabs 09/08/24 (Dilaudid) Allergies Allergy/AdvReac Type Severity Reaction Status Date / Time aspirin Allergy Intermediate Vomiting Verified 09/07/24 22:28 melatonin AdvReac Intermediate Swelling Verified 09/07/24 22:28 of Lip/Tongue/Throat ciprofloxacin (From Cipro) AdvReac Vomiting Verified 09/07/24 22:28 latex AdvReac Rash Verified 09/07/24 22:28 Sulfa (Sulfonamide AdvReac Vomiting Verified 09/07/24 22:28 Antibiotics) Review of Systems Review of Systems ROS Unobtainable: All systems reviewed & are unremarkable except as noted in HPI and below Patient History Alcohol type: hard liquor Exam Narrative Exam Narrative: GENERAL: [24] year old patient appears stated age. Well-developed patient, in mild distress. HEAD: Atraumatic. Normocephalic. EYES: Pupils equal round and reactive. Extraocular motions intact. No scleral icterus. No injection or drainage. ENT: Nose without bleeding, purulent drainage. Throat without erythema, tonsillar hypertrophy or exudate. Airway patent. NECK: Trachea midline. Non tender CARDIOVASCULAR: Regular rate and rhythm without murmurs, gallops, or rubs. RESPIRATORY: Clear to auscultation. Breath sounds equal bilaterally. No wheezes, rales, or rhonchi. GASTROINTESTINAL: Abdomen soft, non-tender, nondistended. EXTREMITIES: No edema or joint tenderness. BACK: Nontender without deformity or crepitance. No flank tenderness. NEURO: AOx3. SKIN: No rash or erythema of visible areas Initial Vital Signs Initial Vital Signs: Vital Signs Temperature 98 F 09/07/24 22:28 Pulse Rate 79 09/07/24 22:28 Respiratory Rate 18 09/07/24 22:28 Blood Pressure 146/94 H 09/07/24 22:28 Pulse Oximetry 100 09/07/24 22:28 Oxygen Delivery Method Room Air 09/07/24 22:28 Course Orders Ordered: ED Orders 09/07/24 22:37 Urine Microscopic Stat 09/07/24 22:39 CBC Auto Diff [Complete Blood Count AUTO DIFF] Stat CMP [Comprehensive Metabolic Panel] Stat Discontinued Medications Hydromorphone HCl (Hydromorphone 1 Mg Inj) 1 mg IV NOW ONE Stop: 09/07/24 22:38 Last Admin: 09/07/24 22:45 Dose: 1 mg Documented By: Lactated Ringer's (Lactated Ringers) 1,000 mls @ 1,000 mls/hr IV BOLUS ONE Stop: 09/07/24 23:36 Last Admin: 09/07/24 22:46 Dose: 1,000 mls/hr Documented By: Ondansetron HCl (Ondansetron 4 Mg/2 Ml Inj) 4 mg IV NOW ONE Stop: 09/07/24 23:14 Last Admin: 09/07/24 23:52 Dose: 4 mg Documented By: EMILE Vital Signs Vital signs: Vital Signs - 8 hr 09/07/24 22:28 09/07/24 22:49 09/07/24 22:50 Temperature 98 F Pulse Rate 79 74 Respiratory Rate 18 Blood Pressure 146/94 H 133/82 Pulse Oximetry 100 96 Oxygen Delivery Method Room Air 09/07/24 22:50 09/07/24 23:00 09/07/24 23:00 Temperature Pulse Rate 71 65 Respiratory Rate Blood Pressure 135/87 Pulse Oximetry 95 92 Oxygen Delivery Method 09/07/24 23:30 09/07/24 23:30 09/08/24 00:00 Temperature Pulse Rate 71 Respiratory Rate Blood Pressure 142/98 H 117/69 Pulse Oximetry 96 Oxygen Delivery Method 09/08/24 00:00 Temperature Pulse Rate 64 Respiratory Rate Blood Pressure Pulse Oximetry 97 Oxygen Delivery Method MDM - Recheck/Abnormal Lab/Rx Lab Data 09/07/24 22:39 09/07/24 22:39 Labs: Lab Results 09/07/24 Range/Units 22:39 WBC 7.4 (4.5-11.0) X10^3/uL RBC 5.23 H (4.0-5.2) X10^6/uL Hgb 15.0 (12.0-16.0) g/dL Hct 44.1 (36-46) % MCV 84.2 (80-100) fL MCH 28.7 (26-34) PG MCHC 34.1 (30-36) % RDW 13.6 (11.6-14.8) % Plt Count 246 (150-400) X10^3/uL Neut % (Auto) 46.8 L (50-75) % Lymph % (Auto) 43.4 H (25-40) % [place] % (Auto) 6.4 (3-14) % Eos % (Auto) 2.9 (2-4) % Baso % (Auto) 0.5 (0-2) % Neut # (Auto) 3500 (9791-5691) /uL Lymph # (Auto) 3200 (9635-1700) /uL [place] # (Auto) 500 (0-900) /uL Eos # (Auto) 200 (0-450) /uL Baso # (Auto) 0 (0-100) /uL Sodium 138 (137-145) mmol/L Potassium 3.7 (3.4-5.1) mmol/L Chloride 103 (98-107) mmol/L Carbon Dioxide 23 (22-32) mmol/L BUN 18 H (7-17) mg/dL Creatinine 0.81 (0.52-1.04) mg/dL Estimated GFR > 60 (>60) mL/min BUN/Creatinine Ratio 22.2 H (6-22) Glucose 125 H (70-99) mg/dL Calcium 9.4 (8.4-10.2) mg/dL Total Bilirubin 0.8 (0.2-1.3) mg/dL AST 32 (14-36) IU/L ALT 27 (<35) IU/L Alkaline Phosphatase 72 (38-126) U/L Total Protein 7.1 (6.3-8.2) g/dL Albumin 4.5 (3.5-5.0) g/dL Globulin 2.6 (1.7-4.1) g/dL Albumin/Globulin Ratio 1.7 (1.0-2.8) MDM Narrative Medical decision making narrative: Vital signs, nurse triage note, medication list, previous ER visits, and all imaging studies reviewed. Patient given Dilaudid Zofran and fluids here as much better on reexamination for pain control. Will DC patient on hydromorphone pain pills for breakthrough pain since she already has hydrocodone at home and to follow up with Urology on Monday for outpatient follow up. Discharge Plan Departure Patient Disposition: Home Clinical Impression: Kidney stone Instructions: DI for Kidney Stones Activity Restrictions/Additional Instructions: Return with new or worsening symptoms. Take your medicines as directed. Follow up Urology on Monday call office for appointment. Prescriptions: New hydromorphone [Dilaudid] 2 mg tablet 2 mg PO Q4-6H PRN (Reason: pain) Qty: 20 0RF No Action alprazolam [Xanax] 0.25 mg Tablet 0.25 mg PO BID PRN (Reason: Anxiety) lamotrigine 25 mg Tablet 25 mg PO DAILY methylprednisolone [Medrol (Johan)] 4 mg tablets,dose pack See Rx Instructions .ROUTE .COMPLEX Qty: 21 0RF Rx Instructions: for 6 days methocarbamol 500 mg tablet 500 mg PO TID PRN (Reason: muscle spasm) Qty: 30 0RF tamsulosin [Flomax] 0.4 mg capsule 0.4 mg PO DAILY Qty: 30 0RF hydrocodone-acetaminophen 5-325 mg tablet 1 tab PO Q4-6H PRN (Reason: pain) Qty: 20 0RF ondansetron 4 mg tablet,disintegrating 4 mg PO Q8H PRN (Reason: nausea and vomiting) Qty: 30 0RF nitrofurantoin monohyd/m-cryst [Macrobid] 100 mg capsule 100 mg PO Q12H 5 Days Qty: 10 0RF Rx Instructions: must administer with a meal/food Stand Alone Forms: Patient Portal/API
[2024-09-07 23:30] VITALS: BP 142/98; PULSE 71; O2SAT 96
[2024-09-07] MEDS: ONDANSETRON 4 MG/2 ML INJ IV (23:52)
[2024-09-08] VITALS: BP 117/69; PULSE 64; O2SAT 97
[2024-09-08 00:30] VITALS: BP 107/69; PULSE 63; O2SAT 95
[2024-09-08 01:00] VITALS: BP 104/65; PULSE 66; O2SAT 98
== END 2024-09-08 01:27 | disposition home or self-care (01) ==
PROVIDERS: Emergency Provider Family Medicine
DX: N20.0 Calculus of kidney (principal)
CPT/HCPCS: 36415; 74177; 80053; 83690; 85025; 96361; 96374; 96375; 96376; 99284; 99285; J1171; J1885; J2405; Q9967

== ENCOUNTER 2024-09-09 10:26 | Emergency (ER) | payer OTHER, SELFPAY ==
[2024-09-09] VITALS (21 sets, daily range): BP systolic 88–135; BP diastolic 54–83; PULSE 57–75; RESP 18–20; TEMP 35.7; O2SAT 92–100; BMI 47.5
--- NOTE | 2024-09-09 10:32 | ED.GENADULT ---
HPI - General Adult General Chief complaint: Urogenital-Female Stated complaint: Possible Kidney stones Time Seen by Provider: 09/09/24 10:32 History of Present Illness HPI narrative: 24-year-old woman with a known proximal 2 mm left kidney stone, she has had stones previously that required surgical intervention. With the initial visit she was discharged home with Vicodin, Zofran, Macrobid and tamsulosin. With repeat visit she was given fluids, parenteral Dilaudid and then a prescription for oral Dilaudid. He has been taking ibuprofen, but did not take Dilaudid this morning (had a busy day planned and did not want to be drowsy with pain adequately controlled with ibuprofen) shortly after getting in the car she again had severe left-sided pain with nausea, vomiting, diaphoresis and comes in to the emergency department. Related Data Home Medications ?Medication ?Instructions ?Recorded ?Confirmed alprazolam 0.25 mg tablet (Xanax) 1 mg PO BID PRN Anxiety 04/07/23 09/09/24 lamotrigine 25 mg tablet 25 mg PO DAILY 04/07/23 04/07/23 Previous Rx's ?Medication ?Instructions ?Recorded methocarbamol 500 mg tablet 500 mg PO TID PRN muscle spasm #30 11/13/23 tabs methylprednisolone 4 mg tablets in See Rx Instructions PO .COMPLEX 11/13/23 a dose pack (Medrol (Johan)) #21 ea hydrocodone 5 mg-acetaminophen 325 1 tab PO Q4-6H PRN pain #20 tabs 09/07/24 mg tablet nitrofurantoin 100 mg PO Q12H 5 days #10 caps 09/07/24 monohydrate/macrocrystals 100 mg capsule (Macrobid) ondansetron 4 mg disintegrating 4 mg PO Q8H PRN nausea and 09/07/24 tablet vomiting #30 tabs tamsulosin 0.4 mg capsule (Flomax) 0.4 mg PO DAILY #30 caps 09/07/24 hydromorphone 2 mg tablet 2 mg PO Q4-6H PRN pain #20 tabs 09/08/24 (Dilaudid) Allergies Allergy/AdvReac Type Severity Reaction Status Date / Time aspirin Allergy Intermediate Vomiting Verified 09/07/24 22:28 melatonin AdvReac Intermediate Swelling Verified 09/07/24 22:28 of Lip/Tongue/Throat ciprofloxacin (From Cipro) AdvReac Vomiting Verified 09/07/24 22:28 latex AdvReac Rash Verified 09/07/24 22:28 Sulfa (Sulfonamide AdvReac Vomiting Verified 09/07/24 22:28 Antibiotics) Review of Systems Review of Systems Narrative: Pertinent positive and negative findings as per HPI Patient History Medical History (Updated 09/09/24 @ 13:05 by Deanne Newell MD) Kidney stone Alcohol type: hard liquor Exam Initial Vital Signs Initial Vital Signs: Vital Signs Pulse Rate 71 09/09/24 10:32 Blood Pressure 129/80 09/09/24 10:32 Pulse Oximetry 99 09/09/24 10:32 General: In obvious distress, pale, diaphoretic, retching Respiratory: Able to speak in full sentences, no obvious respiratory distress Cardiac, tachycardic no murmurs Abdomen: Left flank pain that is not made worse with palpation. No abdominal pain Skin: Pale, diaphoretic Neurologic: Grossly intact no obvious asymmetries or abnormalities Psych: Writhing in agony, difficult to cooperate as she is unable to find a position of comfort Course Orders Ordered: ED Orders 09/09/24 10:35 Complete Blood Count AUTO DIFF Stat Comprehensive Metabolic Panel Stat Discontinued Medications Alprazolam (Alprazolam 0.25 Mg Tablet) 1 mg PO NOW ONE Stop: 09/09/24 15:39 Last Admin: 09/09/24 15:41 Dose: 1 mg Documented By: Hydromorphone HCl (Hydromorphone 0.5 Mg Inj) 0.5 mg IV Q15MIN PRN PRN Reason: Pain, Last Admin: 09/09/24 11:15 Dose: 0.5 mg Documented By: Admin: 09/09/24 10:43 Dose: 0.5 mg Documented By: Sodium Chloride (Normal Saline 0.9%) 1,000 mls @ 1,000 mls/hr IV BOLUS ONE Stop: 09/09/24 11:38 Last Infusion: 09/09/24 12:22 Dose: Infused Documented By: Admin: 09/09/24 10:44 Dose: 1,000 mls/hr Documented By: Ketorolac Tromethamine (Ketorolac 30 Mg/Ml Vial) 15 mg IV NOW ONE Stop: 09/09/24 10:40 Last Admin: 09/09/24 10:43 Dose: 15 mg Documented By: Ondansetron HCl (Ondansetron 4 Mg/2 Ml Inj) 4 mg IV NOW ONE Stop: 09/09/24 10:40 Last Admin: 09/09/24 10:43 Dose: 4 mg Documented By: Prochlorperazine (Prochlorperazine 10 Mg/2 Ml Vial) 10 mg IV NOW ONE Stop: 09/09/24 11:34 Last Admin: 09/09/24 11:37 Dose: 10 mg Documented By: Vital Signs Vital signs: Vital Signs - 8 hr 09/09/24 11:30 09/09/24 11:30 09/09/24 11:37 Pulse Rate 57 L 69 Respiratory Rate Blood Pressure 118/74 135/78 Pulse Oximetry 93 Oxygen Delivery Method 09/09/24 12:00 09/09/24 12:00 09/09/24 12:30 Pulse Rate 61 Respiratory Rate Blood Pressure 108/72 108/66 Pulse Oximetry 94 Oxygen Delivery Method 09/09/24 12:30 09/09/24 13:00 09/09/24 13:00 Pulse Rate 73 69 Respiratory Rate Blood Pressure 113/74 Pulse Oximetry 98 99 Oxygen Delivery Method Room Air 09/09/24 13:30 09/09/24 13:30 09/09/24 14:00 Pulse Rate 64 Respiratory Rate Blood Pressure 105/67 112/63 Pulse Oximetry 94 Oxygen Delivery Method 09/09/24 14:00 09/09/24 14:30 09/09/24 14:30 Pulse Rate 67 67 Respiratory Rate Blood Pressure 97/54 L Pulse Oximetry 96 95 Oxygen Delivery Method Room Air 09/09/24 15:00 09/09/24 15:00 09/09/24 15:02 Pulse Rate 70 Respiratory Rate Blood Pressure 88/57 L 116/69 Pulse Oximetry 95 Oxygen Delivery Method 09/09/24 15:02 09/09/24 15:30 09/09/24 15:30 Pulse Rate 75 70 Respiratory Rate Blood Pressure 103/62 Pulse Oximetry 96 98 Oxygen Delivery Method Room Air 09/09/24 15:48 09/09/24 15:48 09/09/24 16:00 Pulse Rate 74 Respiratory Rate Blood Pressure 110/70 105/61 Pulse Oximetry 95 Oxygen Delivery Method 09/09/24 16:00 09/09/24 16:30 09/09/24 16:30 Pulse Rate 70 67 Respiratory Rate Blood Pressure 95/56 L Pulse Oximetry 95 94 Oxygen Delivery Method 09/09/24 17:00 09/09/24 17:01 09/09/24 17:01 Pulse Rate 66 68 Respiratory Rate 20 Blood Pressure 120/66 Pulse Oximetry 94 94 Oxygen Delivery Method Room Air 09/09/24 17:30 09/09/24 17:30 Pulse Rate 70 60 Respiratory Rate 18 Blood Pressure 110/63 Pulse Oximetry 92 98 Oxygen Delivery Method Medical Decision Making Lab Data 09/09/24 10:35 09/09/24 10:35 Labs: Lab Results 09/09/24 Range/Units 10:35 WBC 9.0 (4.5-11.0) X10^3/uL RBC 5.53 H (4.0-5.2) X10^6/uL Hgb 15.7 (12.0-16.0) g/dL Hct 46.9 H (36-46) % MCV 84.9 (80-100) fL MCH 28.4 (26-34) PG MCHC 33.5 (30-36) % RDW 13.8 (11.6-14.8) % Plt Count 254 (150-400) X10^3/uL Neut % (Auto) 68.5 D (50-75) % Lymph % (Auto) 25.5 (25-40) % [place] % (Auto) 4.1 (3-14) % Eos % (Auto) 1.2 L (2-4) % Baso % (Auto) 0.7 (0-2) % Neut # (Auto) 6200 (8447-6766) /uL Lymph # (Auto) 2300 (0338-5771) /uL [place] # (Auto) 400 (0-900) /uL Eos # (Auto) 100 (0-450) /uL Baso # (Auto) 100 (0-100) /uL Sodium 137 (137-145) mmol/L Potassium 3.9 (3.4-5.1) mmol/L Chloride 103 (98-107) mmol/L Carbon Dioxide 22 (22-32) mmol/L BUN 15 (7-17) mg/dL Creatinine 0.75 (0.52-1.04) mg/dL Estimated GFR > 60 (>60) mL/min BUN/Creatinine Ratio 20.0 (6-22) Glucose 117 H (70-99) mg/dL Calcium 9.4 (8.4-10.2) mg/dL Total Bilirubin 1.3 (0.2-1.3) mg/dL AST 34 (14-36) IU/L ALT 26 (<35) IU/L Alkaline Phosphatase 74 (38-126) U/L Total Protein 7.7 (6.3-8.2) g/dL Albumin 4.8 (3.5-5.0) g/dL Globulin 2.9 (1.7-4.1) g/dL Albumin/Globulin Ratio 1.7 (1.0-2.8) MDM Narrative Medical decision making narrative: 24-year-old woman with prior history of kidney stone that required surgical intervention, 3rd visit now for significant pain related to a left proximal 2 mm ureteral stone initially diagnosed on CT scan on September 07. At that time pain has been controlled with IV medications, she was discharged home with Flomax nitrofurantoin and hydrocodone. She returned on the with severe pain, again treated with parenteral narcotics and this time discharged home with oral Dilaudid. He had been doing relatively well and able to control pain at home until this morning, acute increase in pain with vomiting, diaphoresis and unable to find a comfortable position. Patient describes similar complications with a kidney stone in 2021, she was treated in [place]. At that time again failed outpatient management, was admitted for a stent, could not tolerate the stent, was admitted for pain control and eventually had the stent removed and is not entirely sure how the stone was actually removed. 1150 discussion with you dip transfer center. [facility] is on-call for Urology today 1pm Dr Higgins, Urology . Agrees that patient does need to be admitted, transfer center will work on bed and let me know when and where we can transfer. Patient and her spouse are updated Discharge Plan Departure Patient Disposition: er [facility] Clinical Impression: Ureterolithiasis, Intractable pain Prescriptions: No Action alprazolam [Xanax] 0.25 mg Tablet 1 mg PO BID PRN (Reason: Anxiety) lamotrigine 25 mg Tablet 25 mg PO DAILY methylprednisolone [Medrol (Johan)] 4 mg tablets,dose pack See Rx Instructions .ROUTE .COMPLEX Qty: 21 0RF Rx Instructions: for 6 days methocarbamol 500 mg tablet 500 mg PO TID PRN (Reason: muscle spasm) Qty: 30 0RF tamsulosin [Flomax] 0.4 mg capsule 0.4 mg PO DAILY Qty: 30 0RF hydrocodone-acetaminophen 5-325 mg tablet 1 tab PO Q4-6H PRN (Reason: pain) Qty: 20 0RF ondansetron 4 mg tablet,disintegrating 4 mg PO Q8H PRN (Reason: nausea and vomiting) Qty: 30 0RF nitrofurantoin monohyd/m-cryst [Macrobid] 100 mg capsule 100 mg PO Q12H 5 Days Qty: 10 0RF Rx Instructions: must administer with a meal/food hydromorphone [Dilaudid] 2 mg tablet 2 mg PO Q4-6H PRN (Reason: pain) Qty: 20 0RF
[2024-09-09] MEDS: KETOROLAC 30 MG/ML VIAL 15 MG IV (10:43)
[2024-09-09] MEDS: HYDROMORPHONE 0.5 MG INJ IV ×2 (10:43→11:15)
[2024-09-09] MEDS: ONDANSETRON 4 MG/2 ML INJ IV (10:43)
[2024-09-09] MEDS: SODIUM CHLORIDE 0.9% 1,000 ML 1000 ML IV (10:44)
[2024-09-09 11:09] LABS: Add Manual Diff / Slide Review NO; Basophils Absolute Auto 100 /uL (0-100); Basophils Percent Auto 0.7 % (0-2); Eosinophils Absolute Auto 100 /uL (0-450); Eosinophils Percent Auto 1.2 % (2-4); Hematocrit 46.9 % (36-46); Hemoglobin 15.7 g/dL (12.0-16.0); Lymphocytes Absolute Auto 2300 /uL (1100-4500); Lymphocytes Percent Auto 25.5 % (25-40); Mean Corpuscular HGB Conc 33.5 % (30-36); Mean Corpuscular Hemoglobin 28.4 PG (26-34); Mean Corpuscular Volume 84.9 fL (80-100); Monocytes Absolute Auto 400 /uL (0-900); Monocytes Percent Auto 4.1 % (3-14); Neutrophils Absolute Auto 6200 /uL (1500-7000); Neutrophils Percent Auto 68.5 % (50-75); Platelet Count 254 X10^3/uL (150-400); Red Blood Cell Count 5.53 X10^6/uL (4.0-5.2); Red Cell Distribution Width 13.8 % (11.6-14.8)
--- NOTE | 2024-09-09 11:12 | PC.NURSE ---
Pt c/o chest pain to left side. Dr Newell notified.
[2024-09-09 11:14] LABS: Alanine Aminotransferase 26 IU/L (<35); Albumin 4.8 g/dL (3.5-5.0); Albumin Globulin Ratio 1.7 (1.0-2.8); Alkaline Phosphatase 74 U/L (38-126); Aspartate Aminotransferase 34 IU/L (14-36); Bilirubin Total 1.3 mg/dL (0.2-1.3); Blood Urea Nitrogen 15 mg/dL (7-17); Calcium 9.4 mg/dL (8.4-10.2); Carbon Dioxide 22 mmol/L (22-32); Chloride 103 mmol/L (98-107); Estimated Glomerular Filt Rate > 60 mL/min (>60); Globulin 2.9 g/dL (1.7-4.1); Glucose 117 mg/dL (70-99); HEMOLYSIS 26 (0-50); Potassium 3.9 mmol/L (3.4-5.1); Sodium 137 mmol/L (137-145); Total Protein 7.7 g/dL (6.3-8.2)
--- NOTE | 2024-09-09 11:35 | PC.NURSE ---
Pt requesting additional nausea medication, new orders recieved.
[2024-09-09] MEDS: PROCHLORPERAZINE 10 MG/2 ML VIAL IV (11:37)
--- NOTE | 2024-09-09 15:33 | PC.NURSE ---
patient reports anxiety, states takes xanax at home, will notify the
--- NOTE | 2024-09-09 15:38 | PC.NURSE ---
verified patient Xanax dose from her epic chart, (last filled july 2024) via her jimy, VO given for 1mg xanax by Dr Newell.
[2024-09-09] MEDS: ALPRAZolam 0.25 MG TABLET 1 MG PO (15:41)
== END 2024-09-09 18:07 | disposition short-term general hospital (02) ==
PROVIDERS: Emergency Provider Emergency Medicine
DX: N20.1 Calculus of ureter (principal); Z87.442 Personal history of urinary calculi; R52 Pain, unspecified; R11.2 Nausea with vomiting, unspecified
CPT/HCPCS: 36415; 80053; 85025; 96361; 96374; 96375; 96376; 99284; J0780; J1171; J1885; J2405